=== PATIENT | male | born 1980 | race Caucasian/White ===

== ENCOUNTER → 2022-04-19 12:27 | Outpatient (CLI) | payer BC, SELFPAY ==
--- NOTE | ~2022-04-19 | MR_ITS ---
MRI of the right elbow CLINICAL HISTORY: Pain TECHNIQUE: Proton-density and proton-density fat-sat images were acquired in the axial, coronal, and sagittal planes. FINDINGS: Ulnar collateral ligament is intact. Radial collateral ligament and the lateral ulnar colla teral ligament are intact. Common flexor and common extensor tendon origins are intact. No evidence f or medial or lateral epicondylitis. Bone marrow signals are unremarkable. No joint effusion at the elbow. No articular abnormality of the elbow identified. There is complete rupture of the distal biceps tendon insertion, with retraction of the tendon by at least 9 cm. The retracted tendon is wavy, hyperintense, and somewhat amorphous. There is fluid surrou nding the retracted tendon. There is minimal edema at the myotendinous junction region of the biceps muscle. Brachialis and triceps tendons are intact. IMPRESSION: Complete rupture of the distal biceps tendon with retraction by at least 9 cm. Please see details abo ve. Reviewed, dictated and finalized at [facility]. [employer] IMPRESSION: Complete rupture of the distal biceps tendon with retraction by at least 9 cm. Please see details above.
== END ==
PROVIDERS: PCP Orthopaedic Surgery; Visit Provider Orthopaedic Surgery
DX: S46.211A Strain of muscle, fascia and tendon of other parts of biceps, right arm, initial encounter (principal); X58.XXXA Exposure to other specified factors, initial encounter
CPT/HCPCS: 73221